=== PATIENT | female | born 2000 | race Hispanic/Latino ===

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

== ENCOUNTER 2023-07-11 21:12 | Emergency (ER) | payer BC ==
[~2023-07-11] VITALS: Ht 154.9 cm; Wt 44.3 kg
[~2023-07-11 21:12] MED LIST: ASPI-1443 PO; CEPH500T PO; FERR-82 PO; PREN1TAB80 PO
[2023-07-11 22:08] LABS: BASOPHILS # (AUTO) 0.04 K/uL (0.00-0.20); BASOPHILS % (AUTO) 0.4 % (0.0-5.0); EOSINOPHILS # (AUTO) 0.08 K/uL (0.00-0.70); EOSINOPHILS % (AUTO) 0.7 % (0.0-8.0); HEMATOCRIT 41.5 % (36-48); IMMATURE GRANULOCYTE ABSOLUTE 0.05 K/uL (0-1); LYMPHOCYTES # (AUTO) 2.6 K/uL (1.0-4.8); LYMPHOCYTES % (AUTO) 23.7 % (21.0-51.0); MEAN CORPUSCULAR HEMOGLOBIN 31.2 pg (27.0-33.0); MEAN CORPUSCULAR HGB CONC 33.3 g/dL (32.0-36.0); MEAN CORPUSCULAR VOLUME 93.7 fL (80-100); MONOCYTES # (AUTO) 0.8 K/uL (0.1-1.0); MONOCYTES % (AUTO) 7.1 % (3.0-13.0); NEUTROPHILS # (AUTO) 7.5 K/uL (1.8-7.7); NEUTROPHILS % (AUTO) 67.6 % (40.0-77.0); PLATELET COUNT (AUTO) 371 K/uL (130-400); RED BLOOD CELL COUNT(AUTO) 4.43 MIL/uL (4.00-5.50); RED CELL DISTRIBUTION WIDTH 12.9 % (11.0-15.5); WHITE BLOOD COUNT (AUTO) 11.1 K/uL (4.8-10.8)
[2023-07-11 22:21] LABS: CREATININE 0.9 mg/dL (0.5-1.5); POTASSIUM 3.7 mmol/L (3.5-5.1)
[2023-07-11 22:26] LABS: ALBUMIN 3.6 g/dL (3.5-5.0); BILIRUBIN,TOTAL 0.7 mg/dL (0.2-1.0); TOTAL PROTEIN, SERUM 7.9 g/dL (6.0-8.3)
[2023-07-12] MEDS ORDERED: IOHEXOL-350 75 ML VIAL IV ONE (02:15)
[2023-07-12] MEDS ORDERED: LACT1CAP81 PO (04:21)
[2023-07-12] MEDS ORDERED: FAMO-136 PO (04:21)
[2023-07-12 04:33] VITALS: BP 116/74; PULSE 98; RESP 18; O2SAT 99
== END 2023-07-12 04:33 | disposition home or self-care (01) ==
LOC: EDH 21:12
DX: R10.9 Unspecified abdominal pain (principal)
CPT/HCPCS: 99284; 74177; 80053; 84703; 83690; 85025; 36415; Q9967